=== PATIENT | male | born 1995 | race African-American/Black ===

== ENCOUNTER 2019-08-30 07:18 | Emergency (ER) | payer MEDICAID, OTHER ==
[2019-08-30] MEDS ORDERED: FAMOTIDINE 20 MG TABLET PO ONE (07:38)
[2019-08-30] MEDS ORDERED: PREDNISONE 20 MG TABLET PO ONE (07:38)
[2019-08-30] MEDS ORDERED: CETIRIZINE 10 MG TABLET PO ONE (07:38)
--- NOTE | 2019-08-30 07:44 | ER Document Report ---
HPI - HPI Time Seen by Provider: 08/30/19 07:30 Context: Patient is a 24-year-old male that comes to the emergency department from [facility] for chief complaint of hives. He states symptoms started yesterday, he received Benadryl, symptoms did improve but they returned today. He received Benadryl again today and they faded slightly but did not resolve. Symptoms are on his forearms, abdomen, and back along with slightly up being on the thighs. He denies facial swelling, tongue swelling, difficulty swallowing or breathing, or history of anaphylaxis. He states he has no idea what the cause was. He denies having urticaria in the past. He did have asthma as a child. He takes no daily medications, no other past medical history reported. - REPRODUCTIVE Reproductive: DENIES: : Past Medical History - General Information source: Patient - Social History Smoking Status: Never Smoker Lives with: Other - Incarcerated Family History: Reviewed & Not Pertinent Pulmonary Medical History: Reports: Hx Asthma Past Surgical History: Reports: Hx Appendectomy - 10/11/2015 - Immunizations Immunizations up to date: Yes Hx Diphtheria, Pertussis, Tetanus Vaccination: Yes Vertical Provider Document - CONSTITUTIONAL General Appearance: WD/WN, No Apparent Distress - INFECTION CONTROL TRAVEL OUTSIDE OF THE [place] IN LAST 30 DAYS: No - HEENT HEENT: Atraumatic, Normal ENT Exam - Oral pharyngeal exam is unremarkable, patent airway, normal uvula. Eye exams unremarkable, unremarkable ENT exam otherwise, Normocephalic - NECK Neck: Normal Inspection - RESPIRATORY Respiratory: Breath Sounds Normal, No Respiratory Distress - CARDIOVASCULAR Cardiovascular: Regular Rate, Regular Rhythm - GI/ABDOMEN Gastrointestinal: Abdomen Soft, Abdomen Non-Tender. negative: Abdomen Tender - BACK Back: Normal Inspection - MUSCULOSKELETAL/EXTREMETIES Musculoskeletal/Extremeties: MAEW, FROM, Non-Tender - NEURO Level of Consciousness: Awake, Alert, Appropriate - DERM Integumentary: Warm, Dry, Rash - There is faint urticaria over bilateral forearms and on the back. Urticaria noted over the lateral aspect of the abdomen bilaterally. Unremarkable otherwise. No vesicles, bulla, induration, fluctuance, or signs of infection. Course - Re-evaluation Re-evalutation: Patient with hives which are mild, no signs of anaphylaxis, unremarkable physical exam otherwise. Discussed treatment, expectations, follow-up, return precautions. Patient states understanding and agreement. Discharge - Discharge Clinical Impression: Urticaria Condition: Stable Disposition: HOME, SELF-CARE Additional Instructions: Your evaluation is consistent with hives. There are no other concerning findings at this time. Unfortunately there is no good way to tell what caused this. Take the prednisone as prescribed to completion, take the cetirizine and antihistamines daily for 1 week. You can take an additional 25 to 50 mg every 6 hours if needed for itching or rash symptoms. Symptoms should simply resolve. Follow-up with primary care. If this continues to happen consider allergy testing. Return if you worsen including developing swelling of the face, tongue, throat, difficulty breathing or swallowing, or any other concerning or worsening symptoms. Prescriptions: Cetirizine HCl 10 mg PO DAILY #7 tablet Prednisone [Deltasone 10 mg Tablet] 10 mg PO ASDIR PRN #21 tablet PRN Reason: Famotidine [Pepcid 20 mg Tablet] 20 mg PO BID #14 tablet
[2019-08-30 07:53] VITALS: BP 144/88
== END 2019-08-30 07:57 | disposition home or self-care (01) ==
LOC: ER 07:18
DX: L50.9 Urticaria, unspecified (principal); J45.909 Unspecified asthma, uncomplicated
CPT/HCPCS: 99283; J7512